=== PATIENT | male | born 1985 | race Caucasian/White ===

== ENCOUNTER 2017-05-22 07:28 | Inpatient (IN) | payer OTHER ==
--- NOTE | 2017-05-22 07:47 | PDOC ---
History of Present Illness - General Chief Complaint: Pain Stated Complaint: SEVERE KIDNEY PAIN Time Seen by Provider: 05/22/17 07:47 - History of Present Illness Initial Comments: 31 year old male with PMH of occasional cocaine use presenting with anxiety and flank pain after cocaine usage. He said that he did 2 G of cocaine last night and drank some alcohol as well. He was here approximately one year prior after using cocaine and was admitted for rhabdomylosis and was hydrated. He states that he did the cocaine last night but started to feel the abdominal/ flank pain this morning and also noticed that he was having decreased urine as well. Denies chest pain, dysuria, change in the color of his urine, SOB, or other symptoms. Overall, he is very anxious and worried about his muscle tone because of the rhabdo. 05/22/17 09:58 Past History - Past Medical History Allergies/Adverse Reactions: Allergies Allergy/AdvReac Type Severity Reaction Status Date / Time No Known Allergies Allergy Verified 01/27/13 14:45 Home Medications: Ambulatory Orders NK [No Known Home Medication] 01/18/16 Asthma: No Cardiac Disorders: Yes (rab) COPD: No Diabetes: No GI Disorders: No Disorders: No HTN: No Kidney Stones: No Seizures: No - Surgical History Abdominal Surgery: No Appendectomy: No Cardiac Surgery: No Cholecystectomy: No Lung Surgery: No Neurologic Surgery: No Orthopedic Surgery: No - Reproductive History Testicular Surgery: No - Suicide/Smoking/Psychosocial Hx Smoking Status: Yes Smoking History: Former smoker Have you smoked in the past 12 months: Yes Number of Cigarettes Smoked Daily: 0 If you are a former smoker, when did you quit?: 3 YEARS Information on smoking cessation initiated: No 'Breaking Loose' booklet given: 01/27/13 Hx Alcohol Use: No (stopped 3yrs ago) Drug/Substance Use Hx: Yes (05/21/17) Substance Use Type: Alcohol, Cocaine Hx Substance Use Treatment: No Review of Systems - Review of Systems Constitutional: No: Chills, Diaphoresis, Fever, Loss of Appetite HEENTM: No: Eye Pain, Blurred Vision, Recent change in vision Respiratory: No: Cough, Shortness of Breath, SOB with Exertion Cardiac (ROS): No: Chest Pain, Palpitations, Syncope, Chest Tightness ABD/GI: No: Constipated, Diarrhea, Nausea, Vomiting : Yes: Flank Pain. No: Burning, Dysuria, Frequency, Hematuria Integumentary: No: Bruising, Dryness, Erythema *Physical Exam - Vital Signs Last Vital Signs Temp Pulse Resp BP Pulse Ox 98.3 F 110 H 22 126/78 96 05/22/17 07:42 05/22/17 07:42 05/22/17 07:42 05/22/17 07:42 05/22/17 07:42 - Physical Exam General Appearance: Yes: Appropriately Dressed, Apparent Distress, Mild Distress , Intoxicated HEENT: positive: EOMI, ALISSON, Normal Voice Neck: positive: Trachea midline, Normal Thyroid, Supple. negative: Tender, Rigid Respiratory/Chest: positive: Lungs Clear, Normal Breath Sounds. negative: Chest Tender, Respiratory Distress, Accessory Muscle Use Cardiovascular: positive: Regular Rhythm, Regular Rate, S1, S2. negative: Edema , Murmur, Tachycardia Gastrointestinal/Abdominal: positive: Normal Bowel Sounds, Flat, Soft. negative : Tender Musculoskeletal: positive: CVA Tenderness, Other (No TTP but some CVA tenderness ). negative: Normal Inspection Integumentary: positive: Normal Color, Dry, Warm Neurologic: positive: Fully Oriented, Alert, Normal Response, Motor Strength 5/ 5. negative: Normal Mood/Affect (Anxious and perseverates on his muscle tone in the setting of rhabdo.) ED Treatment Course - LABORATORY CBC & Chemistry Diagram: 05/22/17 08:30 05/22/17 08:30 Medical Decision Making - Medical Decision Making 31 year old male with anxiety and abdominal/ flank pain after cocaine usage. He is young and healthy without previous comorbities or acutal trauma so he is lower risk for emergent pathology such as dissection or intrabdominal bleed. His VS are stable so that also corrroboarates lack of large vascualr pathology. His EKg is also normal which rules out cocane chest pain, particularly because he is also not comlaining of chest pain. Higher ont he differnetla is renal stone vs. renal infarct. He was given 1 Mg of Ativan for his anxiety prior to CT. 05/22/17 10:11 CT abdomen/ pelvis not showing stone or infarct. However, Ck 6k and blood in urine so will admit for fluid hydration and monitoring of CK. Called Dr. Watson and got to the answering service who told us Dr. Gómez was television and radio repairer. We allotted Dr. Gómez 30 minutes to call back then message the hospitalist team for obs admission. 05/22/17 11:23 Patient will be admitted by the [facility] under Dr. Rasmussen. *DC/Admit/Observation/Transfer Diagnosis at time of Disposition: Cocaine intoxication Rhabdomyolysis Qualifiers: Rhabdomyolysis type: non-traumatic Qualified Code(s): M62.82 - Rhabdomyolysis - Discharge Dispostion Condition at time of disposition: Improved Admit: Yes - Referrals Referrals: Lm Watson [Primary Care Provider] -
--- NOTE | 2017-05-22 07:53 | PDOC ---
Attending Attestation - HPI HPI: 05/22/17 09:06 Patient is a 31 year old male with no significant past medical history of who presents to the ED with complaints lower back pain that began this morning. Patient reports waking up this morning with intense lower back pain this morning. He reports using 2 grams of cocaine last night with alcohol consumption. Patient states he has experiencing this before 2 years ago and states he was given fluids. He reports dysuria this morning at 6 am and again within the ED. Patient states groin pain secondary to lower back pain. Denies chest pain, SOb. Denies fevers, chills. Denies nausea, vomiting. Denies any other symptoms. Allergies: None Social history: Former drinker (3 years, relapse last night). Current cocaine user. No tobacco smoking. Surgical history: None PMD: Dr. Watson - Physicial Exam PE: 05/22/17 09:06 GENERAL: +Anxious Awake, alert, and fully oriented, in no acute distress HEAD: No signs of trauma EYES: PERRLA, EOMI, sclera anicteric, conjunctiva clear ENT: Auricles normal inspection, hearing grossly normal, nares patent, oropharynx clear without exudates. Moist mucosa NECK: Normal ROM, supple, no lymphadenopathy, JVD, or masses LUNGS: Breath sounds equal, clear to auscultation bilaterally. No wheezes, and no crackles HEART: +tachycardic. Regular rhythm, normal S1 and S2, no murmurs, rubs or gallops MUSCULOSKELETAL: +MIld bilateral CVA tenderness. ABDOMEN: +Slight superpubic tenderness. No SI. NO HI Soft, nontender, normoactive bowel sounds. No guarding, no rebound. No masses EXTREMITIES: Normal range of motion, no edema. No clubbing or cyanosis. No cords, erythema, or tenderness NEUROLOGICAL: Cranial nerves II through XII grossly intact. Normal speech, normal gait SKIN: Warm, Dry, normal turgor, no rashes or lesions noted. <Yovany Hou - Last Filed: 05/22/17 09:06> - Resident Resident Name: Devante Chavez - ED Attending Attestation I have performed the following: I have examined & evaluated the patient, The case was reviewed & discussed with the resident, I agree w/resident's findings & plan, Exceptions are as noted - Medical Decision Making 05/22/17 07:53 I, Dr. Ying Jaime, DO, attest that this document has been prepared under my direction and personally reviewed by me in its entirety. I further attest, that it accurately reflects all work, treatment, procedures and medical decision -making performed by me. 05/22/17 08:59 a/p: 31yo male with b/l flank pain after using cocaine and etoh last night -concern for poss renal infarct vs renal colic vs pancreatitis -labs -ekg -ct abd/pelvis -ua -hx of rhabdo with cocaine use - will check cpk -ativan for anxiety/pain -reassess 05/22/17 10:14 pt with rhabdo on labs -will continue ivf hydration -will keep in obs to trend ck 05/22/17 10:15 call placed to PMD. awaiting call back <Ying Jaime - Last Filed: 05/22/17 11:46> Heart Score/ECG Review - ECG Intrepretation Comment:: 05/22/17 09:01 sinus at 98, nl axis, nl interval, lvh, no acute st/t wave findings <Ying Jaime - Last Filed: 05/22/17 11:46>
[2017-05-22] MEDS ORDERED: SODIUM CHLORIDE 0.9% 1000 ML INFUS.BAG IV ONE ×2 (08:05→09:56)
[2017-05-22 08:48] LABS: BASOPHIL 0.6 % (0-2.0); MCH 29.5 pg (25.7-33.7); MCHC 33.8 g/dl (32.0-35.9); MEAN CELL VOLUME 87.3 fl (80-96); MEAN PLT VOLUME 7.5 fl (7.5-11.1); NEUTROPHILS 81.8 % (42.8-82.8); PLATELET COUNT 253 K/MM3 (134-434); RDW 13.3 % (11.9-15.9); WHITE BLOOD COUNT 17.4 K/mm3 (4.0-10.0)
[2017-05-22 09:13] LABS: ALBUMIN 4.3 g/dl (3.4-5.0); ANION GAP 12 (8-16); BILIRUBIN,TOTAL 0.4 mg/dL (0.2-1.0); CALCIUM 8.9 mg/dL (8.5-10.1); CO2 24 mmol/L (21-32); CREATININE 0.9 mg/dL (0.7-1.3); GLUCOSE,RANDOM 92 mg/dL (74-106); SGOT/AST 111 U/L (15-37); SGPT/ALT 49 U/L (12-78)
[2017-05-22 09:19] LABS: URINE APPEARANCE CLEAR; URINE BILIRUBIN NEGATIVE (NEGATIVE); URINE BLOOD 3+ (NEGATIVE); URINE COLOR LTYELLOW; URINE GLUCOSE (UA) NEGATIVE (NEGATIVE); URINE KETONE 1+ (NEGATIVE); URINE LEUK ESTERASE NEGATIVE (NEGATIVE); URINE NITRITE NEGATIVE (NEGATIVE); URINE UROBILINOGEN NEGATIVE mg/dL (0.2-1.0)
[2017-05-22 09:20] LABS: URINE PROTEIN 1+ (NEGATIVE)
[2017-05-22 09:22] LABS: URINE RBC 2 /hpf (0-3); URINE WBC 1 /hpf (3-5)
[2017-05-22 09:27] LABS: ALK PHOS 62 U/L (45-117)
[2017-05-22 09:40] LABS: CPK 5820 IU/L (39-308)
[2017-05-22] MEDS ORDERED: SODIUM CHLORIDE 1,000 ML IV SCH (11:15)
--- NOTE | 2017-05-22 11:18 | HP ---
CHIEF COMPLAINT: Bilateral flank pain, muscle aches PCP: HISTORY OF PRESENT ILLNESS: 31 year-old male with a PMH significant for polysubstance abuse (cocaine, ETOH, prescription drugs). 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 Did a strenuous weight-lifting workout yesterday and then did cocaine and alcohol last night. Woke up this morning with bilateral flank pain, leg cramps, muscle aches, and difficulty passing urine. He recognized these symptoms from previous similar episodes and came to the ED. ER course was notable for: (1) WBC 17.4 (2) CPK 5820 (3) Utox + cocaine (4) UA - 3+ blood, 2 RBCs Recent Travel: No PAST MEDICAL HISTORY: Polysubstance abuse PAST SURGICAL HISTORY: None reported Social History: Smoking: yes Alcohol: yes Drugs: yes Family History: non-contributory Allergies No Known Allergies Allergy (Verified 01/27/13 14:45) HOME MEDICATIONS: Home Medications Medication Instructions Recorded NK [No Known Home Medication] 01/18/16 REVIEW OF SYSTEMS CONSTITUTIONAL: Absent: fever, chills, diaphoresis, generalized weakness, malaise, loss of appetite, weight change HEENT: Absent: rhinorrhea, nasal congestion, throat pain, throat swelling, difficulty swallowing, mouth swelling, ear pain, eye pain, visual changes CARDIOVASCULAR: Absent: chest pain, syncope, palpitations, irregular heart rate, lightheadedness , peripheral edema RESPIRATORY: Absent: cough, shortness of breath, dyspnea with exertion, orthopnea, wheezing, stridor, hemoptysis GASTROINTESTINAL: Absent: abdominal pain, abdominal distension, nausea, vomiting, diarrhea, constipation, melena, hematochezia GENITOURINARY: Present: bilateral flank pain, difficulty passing urine Absent: dysuria, frequency, urgency, hesitancy, hematuria, genital pain MUSCULOSKELETAL: Absent: myalgia, arthralgia, joint swelling, back pain, neck pain SKIN: Absent: rash, itching, pallor HEMATOLOGIC/IMMUNOLOGIC: Absent: easy bleeding, easy bruising, lymphadenopathy, frequent infections ENDOCRINE: Absent: unexplained weight gain, unexplained weight loss, heat intolerance, cold intolerance NEUROLOGIC: Absent: headache, focal weakness or paresthesias, dizziness, unsteady gait, seizure, mental status changes, bladder or bowel incontinence PSYCHIATRIC: Absent: anxiety, depression, suicidal or homicidal ideation, hallucinations. PHYSICAL EXAMINATION Vital Signs - 24 hr 05/22/17 07:42 Temperature 98.3 F Pulse Rate 110 H Respiratory 22 Rate Blood Pressure 126/78 O2 Sat by Pulse 96 Oximetry (%) GENERAL/NEURO: Awake, alert, and fully oriented, in no acute distress; CN II- XII grossly intact. Irritable, anxious. Mild hand tremors. HEAD: Normal with no signs of trauma. EYES: Pupils equal, round and reactive to light, extraocular movements intact, sclera anicteric, conjunctiva clear. No ptosis. EARS, NOSE, THROAT: Ears normal, nares patent, oropharynx clear without exudates. Moist mucous membranes. NECK: Normal range of motion, supple without lymphadenopathy, JVD, or masses. LUNGS: Breath sounds equal, clear to auscultation bilaterally. No wheezes, and no crackles. No accessory muscle use. HEART: Regular rate and rhythm, normal S1 and S2 without murmur, rub or gallop. ABDOMEN: Soft, nontender, not distended, normoactive bowel sounds, no guarding, no rebound, no masses. No hepatomegaly or splenomegaly. MUSCULOSKELETAL: Normal range of motion at all joints. No bony deformities or tenderness. No CVA tenderness. UPPER EXTREMITIES: 2+ pulses, warm, well-perfused. No cyanosis. No clubbing. No peripheral edema. LOWER EXTREMITIES: 2+ pulses, warm, well-perfused. No calf tenderness. No peripheral edema. NEUROLOGICAL: Cranial nerves II-XII intact. Normal speech. Normal gait. Laboratory Results - last 24 hr 05/22/17 05/22/17 05/22/17 08:30 08:30 08:59 WBC 17.4 H D RBC 4.91 Hgb 14.5 Hct 42.9 MCV 87.3 MCH 29.5 MCHC 33.8 RDW 13.3 Plt Count 253 D MPV 7.5 Neutrophils % 81.8 D Lymphocytes % 10.0 D Monocytes % 7.6 Eosinophils % 0.0 D Basophils % 0.6 Sodium 136 Potassium 4.3 Chloride 100 Carbon Dioxide 24 Anion Gap 12 BUN 21 H D Creatinine 0.9 D Creat Clearance w eGFR > 60 Random Glucose 92 Calcium 8.9 Total Bilirubin 0.4 D AST 111 H D ALT 49 Alkaline Phosphatase 62 Creatine Kinase 5820 H Creatine Kinase Index 0.2 CK-MB (CK-2) 15.578 H Total Protein 7.0 Albumin 4.3 Lipase 136 Urine Color Ltyellow Urine Appearance Clear Urine pH 6.0 Urine Protein 1+ H Urine Glucose (UA) Negative Urine Ketones 1+ H Urine Blood 3+ H Urine Nitrite Negative Urine Bilirubin Negative Urine Urobilinogen Negative Urine RBC 2 Urine WBC 1 ASSESSMENT/PLAN: 31 year-old male with a PMH significant for polysubstance abuse (cocaine, ETOH, prescription drugs). Placed on observation for rhabdomyolysis. Rhabdomyolysis --CPK 5820 --05/22 CTAP: no evidence of urolithiasis or obstructive uropathy; no gross evidence of renal infarction on non-contrast study --05/22 US renal: kidneys unremarkable --received 2L in ED, continue IV fluids @ 150mL/hr --repeat CPK in 8 hours --strict I&Os --renal consult Dr. Chan pending --close monitoring of renal function Polysubstance abuse --early signs of withdrawal: irritable, anxious, mild hand tremors --discussed librium protocol with patient; he states he was sober for three years after going through detox; fell off the wagon of late, binge drinks; he does not think he needs the full librium protocol since he does not drink regularly; will give librium 25mg x 1 now, and continue to monitor closely DVT prophylaxis: lovenox, oob, ambulation Dispo: continues to require observation. Visit type - Emergency Visit Emergency Visit: Yes ED Registration Date: 05/22/17 Care time: The patient presented to the Emergency Department on the above date and was hospitalized for further evaluation of their emergent condition. - New Patient This patient is new to me today: Yes Date on this admission: 05/22/17 - Critical Care Critical Care patient: No
[2017-05-22 11:57] VITALS: BMI 24.4
[2017-05-22] MEDS: SODIUM CHLORIDE 1,000 ML IV SCH (12:25)
[2017-05-22 12:27] LABS: URINE MARIJUANA THC NEGATIVE ng/ml (CUTOFF=50)
[2017-05-22] MEDS ORDERED: chlordiazePOXIDE HCL 25 MG CAPSULE PO ONE (15:31)
[2017-05-22] MEDS ORDERED: ASPIRIN 325 MG ENTERIC COATED TABLET (FP) PO ONE (16:59)
[2017-05-22] MEDS ORDERED: SODIUM CHLORIDE 1,000 ML IV STA (17:01)
[2017-05-22] MEDS ORDERED: chlordiazePOXIDE HCL 25 MG CAPSULE PO PRN (17:21)
--- NOTE | 2017-05-22 17:33 | HOSP ---
Subjective - Review of Symptoms Events since last encounter: Repeat CPK increased to >11,000. Has put out 1.7L urine over past [address] Guadarrama, will continue NS @ 150mL/hr. First troponin elevated 0.13. BP 100/70, HR 70. Spoke with bottling line operator Dr. Mcelroy. Continue to treat with IV fluids, no other intervention for now since HR and BP are controlled. Two troponins pending. Physical Examination Vital Signs: Vital Signs Temperature 98.3 F 05/22/17 07:42 Pulse Rate 71 05/22/17 11:42 Respiratory Rate 18 05/22/17 11:42 Blood Pressure 100/51 05/22/17 11:42 O2 Sat by Pulse Oximetry (%) 97 05/22/17 11:42
[2017-05-22] MEDS: chlordiazePOXIDE HCL 25 MG CAPSULE PO ONE ×2 (17:35→17:50)
[2017-05-22] MEDS ORDERED: LORazepam 2 MG/ML SDV VIAL IVPUSH ONE (18:30)
[2017-05-22] MEDS: chlordiazePOXIDE HCL 25 MG CAPSULE PO SCH (23:00)
[2017-05-23] MEDS: chlordiazePOXIDE HCL 25 MG CAPSULE PO SCH ×4 (05:47→22:13)
[2017-05-23 06:49] LABS: BASOPHIL 0.3 % (0-2.0); EOSINOPHIL 0.6 % (0-4.5); MCH 29.9 pg (25.7-33.7); MCHC 33.8 g/dl (32.0-35.9); MEAN CELL VOLUME 88.5 fl (80-96); MEAN PLT VOLUME 7.5 fl (7.5-11.1); NEUTROPHILS 58.5 % (42.8-82.8); PLATELET COUNT 196 K/MM3 (134-434); RDW 13.6 % (11.9-15.9); WHITE BLOOD COUNT 6.9 K/mm3 (4.0-10.0)
[2017-05-23 07:03] LABS: ALBUMIN 3.6 g/dl (3.4-5.0); ALK PHOS 50 U/L (45-117); ANION GAP 8 (8-16); BILIRUBIN,TOTAL 0.7 mg/dL (0.2-1.0); CALCIUM 8.4 mg/dL (8.5-10.1); CO2 27 mmol/L (21-32); CREATININE 0.7 mg/dL (0.7-1.3); GLUCOSE,RANDOM 94 mg/dL (74-106); MAGNESIUM 2.1 mg/dL (1.8-2.4); PHOSPHOROUS 2.2 mg/dL (2.5-4.9); SGOT/AST 209 U/L (15-37); SGPT/ALT 76 U/L (12-78); TOT PROT 5.8 g/dl (6.4-8.2)
[2017-05-23] MEDS: HEPARIN NA (PORCINE) 5,000 UNITS/ML 1ML VIAL SQ SCH ×3 (08:35→22:14)
[2017-05-23 09:58] LABS: URINE APPEARANCE CLEAR; URINE BILIRUBIN NEGATIVE (NEGATIVE); URINE BLOOD 1+ (NEGATIVE); URINE COLOR STRAW; URINE GLUCOSE (UA) NEGATIVE (NEGATIVE); URINE KETONE NEGATIVE (NEGATIVE); URINE LEUK ESTERASE NEGATIVE (NEGATIVE); URINE NITRITE NEGATIVE (NEGATIVE); URINE PROTEIN NEGATIVE (NEGATIVE); URINE UROBILINOGEN NEGATIVE mg/dL (0.2-1.0)
[2017-05-23] MEDS ORDERED: ENOXAPARIN NA (PORCINE) 40 MG/0.4 ML DISP.SYRIN SQ SCH (10:00)
[2017-05-23 10:08] LABS: URINE RBC 1 /hpf (0-3)
--- NOTE | 2017-05-23 10:40 | CON.NEP ---
Consult Consult Specialty:: Nephrolgoy Referred by:: RAMIRO Castano Reason for Consultation:: Rhabodomyolysis - History of Present Illness Chief Complaint: Flank pain, muscle pain History of Present Illness: This is a 31 year old gentleman with no significant PMhx who presented with complaints of flank pain and muscle pain after cocaine and etoh use and found to have rhabdomyolysis with CK peak > 96385. Pt with cocaine and ETOH use 2 days prior to admission and also with weight lifting. Denies any dark urine or blood in urine. No N/V/D. No flank pain at present time. - History Source History Provided By: Patient Limitations to Obtaining History: No Limitations - Alcohol/Substance Use Hx Alcohol Use: No (stopped 3yrs ago) - Smoking History Smoking history: Former smoker Have you smoked in the past 12 months: Yes Aproximately how many cigarettes per day: 0 If you are a former smoker, when did you quit?: 3 YEARS Home Medications - Allergies Allergies/Adverse Reactions: Allergies Allergy/AdvReac Type Severity Reaction Status Date / Time No Known Allergies Allergy Verified 01/27/13 14:45 - Home Medications Home Medications: Ambulatory Orders NK [No Known Home Medication] 01/18/16 Family Disease History - Family Disease History Family History: Unremarkable Review of Systems - Review of Systems Constitutional: reports: No Symptoms Eyes: reports: No Symptoms HENT: reports: No Symptoms Neck: reports: No Symptoms Cardiovascular: reports: No Symptoms Respiratory: reports: No Symptoms Gastrointestinal: reports: No Symptoms Genitourinary: reports: No Symptoms Breasts: reports: No Symptoms Reported Musculoskeletal: reports: Extremity Pain, Muscle Pain, Muscle Weakness Neurological: reports: No Symptoms Nephrology Consult - Height Height: 5 ft 11 in - Weight Weight: 175 lb - BMI Body Mass Index (BMI): 24.4 - Lab Results CBC,BMP: CBC, BMP 05/23/17 06:20 05/23/17 06:20 Anion Gap: Anion Gap Anion Gap 8 (8-16) 05/23/17 06:20 - Physical Examination Vital Signs: Vital Signs Temperature 98.6 F 05/23/17 10:00 Pulse Rate 68 05/23/17 10:00 Respiratory Rate 16 05/23/17 10:00 Blood Pressure 121/63 05/23/17 10:00 O2 Sat by Pulse Oximetry (%) 97 10/01/17 19:22 Constitutional: Yes: Well Nourished, No Distress Eyes: Yes: Conjunctiva Clear HENT: Yes: Atraumatic, Normocephalic Neck: Yes: Supple Cardiovascular: Yes: Regular Rate and Rhythm, S1, S2. No: Murmur, Rub Respiratory: Yes: Regular, CTA Bilaterally Gastrointestinal: Yes: Normal Bowel Sounds, Soft Extremities: No: Amputation, Cold, Cool, Cyanosis Edema: Yes Neurological: Yes: Alert, Oriented Psychiatric: Yes: Alert, Oriented Problem List - Problems (1) Cocaine intoxication Code(s): F14.929 - COCAINE USE, UNSPECIFIED WITH INTOXICATION, UNSPECIFIED (2) Rhabdomyolysis Code(s): M62.82 - RHABDOMYOLYSIS Qualifiers: Rhabdomyolysis type: non-traumatic Qualified Code(s): M62.82 - Rhabdomyolysis; M62.82 - Rhabdomyolysis (3) Alcohol abuse Code(s): F10.10 - ALCOHOL ABUSE, UNCOMPLICATED Assessment/Plan 31 year old gentleman with no significant PMhx who presented with complaints of flank pain and muscle pain after cocaine and etoh use and found to have rhabdomyolysis with CK peak > 04343. #Acute Rhabodomyolysis Likely secondary to ETOH/Cocaine intoxication +/- physical exertion CK levels now downtrending Renal function stable, and no structural issues with the kidney at this time based on CT and US imaging Trend CK level Q12h continue IVF until CKs less then 5000 at which point pt can orally hydrate Trend BUN/Cr daily no indication for bicarb at this time (Marginal Ca, Bicarb >> 25) #Hypophosphatemia due to poor oral intake insetting of intoxication? give neutraphos PO x 3 Check vit D levels #Elevated Troponin related to Cocaine? Cardiology follow up Thank you Will follow Dustin Guadarrama DO
[2017-05-23] MEDS: NAPH,MB-DB/K PH,MBDB POWDER PACKET PO SCH ×3 (11:28→22:14)
[2017-05-23] MEDS: SODIUM CHLORIDE 1,000 ML IV SCH (11:29)
--- NOTE | 2017-05-23 11:56 | EKG ---
Test Reason : Blood Pressure : / mmHG Vent. Rate : 098 BPM Atrial Rate : 098 BPM P-R Int : 150 ms QRS Dur : 092 ms QT Int : 352 ms P-R-T Axes : 051 081 056 degrees QTc Int : 449 ms NORMAL SINUS RHYTHM NORMAL ECG WHEN COMPARED WITH ECG OF 18-JAN-2016 13:22, NO SIGNIFICANT CHANGE WAS FOUND Confirmed by RNE MOREIRA MD ([id number]) on 05/23/2017 11:55:58 AM Referred By: Confirmed By:REN MOREIRA MD
--- NOTE | 2017-05-23 13:21 | PN ---
Physical Exam: SUBJECTIVE: Patient seen and examined. He feels fine, hungry. He denies le weakness/pain, does not want rehab. Urine is clear, anxiety improved. He said this is an isolated event, he stopped drinking 4 years ago, however was admitted for the same in december 2016. He is concerned he will loose muscle mass. Events: - CPK down trended OBJECTIVE: Vital Signs Period Temp Pulse Resp BP Sys/Patrick Pulse Ox Last 24 Hr 98 F-98.6 F 65-68 16-20 107-121/51-63 97 PE Neuro: alert, awake, cn 2-12intact HEENT: no tongue fasiculation Pulm: CTAB CV: s1 s2 rrr no mrg Abd: s nt nd + bs Ext: warm, no le edema or tenderness Laboratory Results - last 24 hr 05/22/17 05/22/17 05/22/17 15:20 15:40 21:10 WBC RBC Hgb Hct MCV MCH MCHC RDW Plt Count MPV Neutrophils % Lymphocytes % Monocytes % Eosinophils % Basophils % Sodium Potassium Chloride Carbon Dioxide Anion Gap BUN Creatinine Creat Clearance w eGFR Random Glucose Calcium Phosphorus Magnesium Total Bilirubin AST ALT Alkaline Phosphatase Creatine Kinase 30529 H Creatine Kinase Index 0.2 CK-MB (CK-2) 23.930 H Troponin I 0.13 H D 0.08 H D Total Protein Albumin Urine Color Urine Appearance Urine pH Urine Protein Urine Glucose (UA) Urine Ketones Urine Blood Urine Nitrite Urine Bilirubin Urine Urobilinogen Urine RBC Urine WBC 05/23/17 05/23/17 05/23/17 03:30 06:20 06:20 WBC 6.9 D RBC 4.79 Hgb 14.3 Hct 42.4 MCV 88.5 MCH 29.9 MCHC 33.8 RDW 13.6 Plt Count 196 D MPV 7.5 Neutrophils % 58.5 D Lymphocytes % 31.5 D Monocytes % 9.1 Eosinophils % 0.6 D Basophils % 0.3 Sodium 142 Potassium 4.0 Chloride 107 Carbon Dioxide 27 Anion Gap 8 BUN 10 D Creatinine 0.7 D Creat Clearance w eGFR > 60 Random Glucose 94 Calcium 8.4 L Phosphorus 2.2 L Magnesium 2.1 Total Bilirubin 0.7 D AST 209 H D ALT 76 D Alkaline Phosphatase 50 Creatine Kinase Creatine Kinase Index CK-MB (CK-2) Troponin I 0.05 D Total Protein 5.8 L Albumin 3.6 Urine Color Urine Appearance Urine pH Urine Protein Urine Glucose (UA) Urine Ketones Urine Blood Urine Nitrite Urine Bilirubin Urine Urobilinogen Urine RBC Urine WBC 05/23/17 05/23/17 06:20 09:22 WBC RBC Hgb Hct MCV MCH MCHC RDW Plt Count MPV Neutrophils % Lymphocytes % Monocytes % Eosinophils % Basophils % Sodium Potassium Chloride Carbon Dioxide Anion Gap BUN Creatinine Creat Clearance w eGFR Random Glucose Calcium Phosphorus Magnesium Total Bilirubin AST ALT Alkaline Phosphatase Creatine Kinase 7917 H Creatine Kinase Index 0.1 CK-MB (CK-2) 14.593 H Troponin I Total Protein Albumin Urine Color Straw Urine Appearance Clear Urine pH 7.0 Urine Protein Negative Urine Glucose (UA) Negative Urine Ketones Negative Urine Blood 1+ H Urine Nitrite Negative Urine Bilirubin Negative Urine Urobilinogen Negative Urine RBC 1 Urine WBC None Active Medications Generic Name Dose Route Start Last Admin Trade Name Freq PRN Reason Stop Dose Admin Chlordiazepoxide HCl 25 mg 05/22/17 17:21 Librium - PO 05/25/17 17:20 Q4H PRN WITHDRAWAL(CONT SUBST) Chlordiazepoxide HCl 50 mg 05/22/17 23:00 05/23/17 11:28 Librium - PO 05/23/17 17:01 50 mg [id number] HUGO Administration Chlordiazepoxide HCl 25 mg 05/23/17 23:00 Librium - PO 05/24/17 17:01 [id number] HUGO Chlordiazepoxide HCl 15 mg 05/24/17 23:00 Librium - PO 05/25/17 17:01 [id number] HUGO Heparin Sodium (Porcine) 5,000 unit 05/23/17 07:45 05/23/17 08:35 Heparin - SQ 5,000 unit TID HUGO Administration Sodium Chloride 1,000 mls @ 150 mls/hr 05/22/17 11:45 05/23/17 11:29 Normal Saline - IV 150 mls/hr ASDIR HUGO Administration Potassium Phos/Sodium Phos 1 packet 05/23/17 10:45 05/23/17 11:28 Phos-Nak Packet - PO 05/23/17 22:01 1 packet TID HUGO Administration Assessment: 30 year old male with PMHx of alcohol abuse admitted with bilateral flank pain, leg cramps, muscle aches, and difficulty passing urine. Plan 1. Rhabdomyolysis - 2/2 mixed cocaine use and vigorous exercise - CK trending down, check q12 - Continue fluids 150cc/hr, once cpk <5000 can hydrate orally 2. Chest pain - Likely d/t cocaine use - Serial trops negative 3. Leukocytosis - Resolved - Likely reactive 4. Hypophosphatemia - Replete with k phos pkts 5. Alcohol abuse - Patient reports being sober for 4 years this drinking is an isolated event - Dose not want to go to rehab, reports having a counselor Cocaine use - Reports this was an isolated event as well Dispo: - Once condition improves Visit type - Emergency Visit Emergency Visit: Yes ED Registration Date: 05/22/17 Care time: The patient presented to the Emergency Department on the above date and was hospitalized for further evaluation of their emergent condition. - New Patient This patient is new to me today: Yes Date on this admission: 05/23/17 - Critical Care Critical Care patient: No
--- NOTE | 2017-05-23 16:40 | CON.CARD ---
Consult Consult Specialty:: Cardiology Reason for Consultation:: Chest pain - History of Present Illness Chief Complaint: Chest pain History of Present Illness: This is a 31 year old male with a PMH of polysubstance abuse (cocaine, ETOH, prescription drugs). He states that he did a strenuous weight-lifting workout and then did cocaine with alcohol. He woke up with bilateral flank pain, leg cramps, muscle aches, and difficulty passing urine. He recognized these symptoms from previous similar episodes and came to the ED. ER course was notable for: (1) WBC 17.4 (2) CPK 5820 (3) Utox + cocaine (4) UA - 3+ blood, 2 RBCs Troponin I noted to be positive 0.13 - Alcohol/Substance Use Hx Alcohol Use: No (stopped 3yrs ago) - Smoking History Smoking history: Former smoker Have you smoked in the past 12 months: Yes Aproximately how many cigarettes per day: 0 If you are a former smoker, when did you quit?: 3 YEARS Home Medications - Allergies Allergies/Adverse Reactions: Allergies Allergy/AdvReac Type Severity Reaction Status Date / Time No Known Allergies Allergy Verified 01/27/13 14:45 - Home Medications Home Medications: Ambulatory Orders NK [No Known Home Medication] 01/18/16 Review of Systems Unable to obtain ROS, reason: As per HPI Vital Signs: Vital Signs Temperature 98.4 F 05/23/17 13:51 Pulse Rate 79 05/23/17 13:51 Respiratory Rate 20 05/23/17 13:51 Blood Pressure 125/75 05/23/17 13:51 O2 Sat by Pulse Oximetry (%) 99 05/23/17 11:00 Constitutional: Yes: Well Nourished HENT: Yes: WNL Neck: Yes: WNL Respiratory: Yes: CTA Bilaterally Gastrointestinal: Yes: Soft Cardiovascular: Yes: Regular Rate and Rhythm (NL S1S2, No MRHG) JVD: No PMI: Non-Displaced (RRR, NL S1S2, No MRHG) Extremities: Yes: WNL Edema: No - Other Data Labs, Other Data: CBC, BMP 05/23/17 06:20 05/23/17 06:20 Troponin, BNP 05/22/17 05/22/17 05/23/17 15:40 21:10 03:30 Troponin I 0.13 H D 0.08 H D 0.05 D Troponin, BNP 05/22/17 05/22/17 05/23/17 15:40 21:10 03:30 Troponin I 0.13 H D 0.08 H D 0.05 D Assessment/Plan Rhabdomyolysis Likely secondary to exercise cocaine after vigorous exercise CPK trending down with fluids Chest pain Postitive troponin level secondary to demand ischemia secondary to cocaine use ( type 2 IA) Avoid Beta Blockers in the setting of cocaine Follow troponin trends Agree with ASA Obtain echocardiogram
[2017-05-23] MEDS: ASPIRIN COATED 81 MG TABLET.EC PO SCH (22:13)
[2017-05-24] MEDS: HEPARIN NA (PORCINE) 5,000 UNITS/ML 1ML VIAL SQ SCH ×3 (05:09→22:46)
[2017-05-24] MEDS: chlordiazePOXIDE HCL 25 MG CAPSULE PO SCH ×3 (05:09→17:12)
[2017-05-24 06:51] LABS: ANION GAP 5 (8-16); CALCIUM 8.5 mg/dL (8.5-10.1); CO2 30 mmol/L (21-32); CREATININE 0.7 mg/dL (0.7-1.3); GLUCOSE,RANDOM 95 mg/dL (74-106); PHOSPHOROUS 3.1 mg/dL (2.5-4.9)
[2017-05-24 07:17] LABS: CPK 3894 IU/L (39-308)
[2017-05-24] MEDS: ASPIRIN COATED 81 MG TABLET.EC PO SCH (09:23)
--- NOTE | 2017-05-24 12:04 | PN ---
Progress Note (short form) - Note Progress Note: Renal Follow up for Rhabomyolysis Pt seen and examined at the bedside awake and alert no acute complaints no muscle pain, sob, chest pain making clear urine Vital Signs Temperature 97.8 F 05/24/17 09:00 Pulse Rate 47 L 05/24/17 09:00 Respiratory Rate 18 05/24/17 11:00 Blood Pressure 108/63 05/24/17 09:00 O2 Sat by Pulse Oximetry (%) 99 05/24/17 11:00 Intake & Output 05/21/17 05/22/17 05/23/17 05/24/17 23:59 23:59 23:59 23:59 Intake Total 2900 5200 300 Output Total 3900 36600 3100 Balance -1000 -6350 -2800 Weight 175 lb 175 lb NAD, awake and alert RRR CTA soft NT/ND Abd no edema CBC, BMP 05/23/17 06:20 05/24/17 06:00 Laboratory Tests 05/23/17 05/24/17 06:20 06:00 Random Glucose 95 Calcium 8.4 L 8.5 Phosphorus 2.2 L 3.1 D Magnesium 2.1 Creatine Kinase 3894 H CK-MB (CK-2) 5.25 H Albumin 3.6 Current Medications Aspirin (Ecotrin -) 81 mg PO DAILY [facility] Last Admin: 05/24/17 09:23 Dose: 81 mg Chlordiazepoxide HCl (Librium -) 25 mg PO Q4H PRN PRN Reason: WITHDRAWAL(CONT SUBST) Stop: 05/25/17 17:20 Chlordiazepoxide HCl (Librium -) 25 mg PO S2S-WOK [facility] Stop: 05/24/17 17:01 Last Admin: 05/24/17 05:09 Dose: 25 mg Chlordiazepoxide HCl (Librium -) 15 mg PO B2G-FOH [facility] Stop: 05/25/17 17:01 Heparin Sodium (Porcine) (Heparin -) 5,000 unit SQ TID [facility] Last Admin: 05/24/17 05:09 Dose: 5,000 unit Sodium Chloride (Normal Saline -) 1,000 mls @ 150 mls/hr IV ASDIR [facility] Last Admin: 05/23/17 11:29 Dose: 150 mls/hr A/P 31 year old gentleman with no significant PMhx who presented with complaints of flank pain and muscle pain after cocaine and etoh use and found to have rhabdomyolysis with CK peak > 99779. #Acute Rhabodomyolysis Likely secondary to ETOH/Cocaine intoxication +/- physical exertion CK levels now less then 5k can be off IVF, continued oral intake >2L daily for the next few days will need to follow up with PMD for repeat labs in 1 week advised to avoid strenuous exercise for the next week until he follow up with PMD Dustin Guadarrama DO Problem List - Problems (1) Cocaine intoxication Code(s): F14.929 - COCAINE USE, UNSPECIFIED WITH INTOXICATION, UNSPECIFIED (2) Rhabdomyolysis Code(s): M62.82 - RHABDOMYOLYSIS Qualifiers: Rhabdomyolysis type: non-traumatic Qualified Code(s): M62.82 - Rhabdomyolysis; M62.82 - Rhabdomyolysis (3) Alcohol abuse Code(s): F10.10 - ALCOHOL ABUSE, UNCOMPLICATED
[2017-05-24] MEDS: SODIUM CHLORIDE 1,000 ML IV SCH (12:14)
--- NOTE | 2017-05-24 14:31 | DS ---
Physical Exam: SUBJECTIVE: Patient seen and examined OBJECTIVE: Vital Signs Period Temp Pulse Resp BP Sys/Patrick Pulse Ox Last 24 Hr 97.8 F-98.0 F 47-66 18-20 100-108/50-63 99 PHYSICAL EXAM GENERAL: The patient is awake, alert, and fully oriented, in no acute distress. HEAD: Normal with no signs of trauma. EYES: PERRL, extraocular movements intact, sclera anicteric, conjunctiva clear. ENT: Ears normal, nares patent, oropharynx clear without exudates, moist mucous membranes. NECK: Trachea midline, full range of motion, supple. LUNGS: Breath sounds equal, clear to auscultation bilaterally, no wheezes, no crackles, no accessory muscle use. HEART: Regular rate and rhythm, S1, S2 without murmur, rub or gallop. ABDOMEN: Soft, nontender, nondistended, normoactive bowel sounds, no guarding, no rebound, no hepatosplenomegaly, no masses. EXTREMITIES: 2+ pulses, warm, well-perfused, no edema. NEUROLOGICAL: Cranial nerves II through XII grossly intact. Normal speech, gait not observed. PSYCH: Normal mood, normal affect. SKIN: Warm, dry, normal turgor, no rashes or lesions noted. LABS Laboratory Results - last 24 hr 05/23/17 05/24/17 17:15 06:00 Sodium 142 Potassium 4.0 Chloride 107 Carbon Dioxide 30 Anion Gap 5 L BUN 13 D Creatinine 0.7 Random Glucose 95 Calcium 8.5 Phosphorus 3.1 D Creatine Kinase 6289 H 3894 H Creatine Kinase Index 0.1 0.1 CK-MB (CK-2) 8.913 H 5.25 H HOSPITAL COURSE: Date of Admission:05/22/17 Date of Discharge: 05/24/17 Pre hospital course 31 year-old male with a PMH significant for polysubstance abuse (cocaine, ETOH, prescription drugs). 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 Did a strenuous weight-lifting workout yesterday and then did cocaine and alcohol last night. Woke up this morning with bilateral flank pain, leg cramps, muscle aches, and difficulty passing urine. He recognized these symptoms from previous similar episodes when he was diagnosed with rhabdomyolysis, and came to the ED. ER course (1) WBC 17.4 (2) CPK 5820 (3) Utox + cocaine (4) UA - 3+ blood, 2 RBCs Subsequent hospital course by problem list Acute Rhabdomyolysis --likely secondary to ETOH/cocaine intoxication --CPK peaked 11,494, today 3,894 --05/22 CTAP: no evidence of urolithiasis or obstructive uropathy; no gross evidence of renal infarction on non-contrast study --05/22 US renal: kidneys unremarkable --05/24 Echo: --was aggressively hydrated with IV fluids --encouraged PO intake >2L daily Demand ischemia/Type II myocardial infarction secondary to cocaine ingestion --troponins trended down --treated with ASA only; BP and pulse were on low side, no room to give CCB; BB contraindicated Polysubstance abuse --demonstrated early signs of withdrawal: irritability, anxiety, mild hand tremors --was treated with librium taper protocol until today when patient refused all further librium, stating he does not like the way it makes him feel --patient does appear anxious today, demanding to go home Discharge to home. Patient declines offer of rehab, counseling, any type of substance abuse therapy. Minutes to complete discharge: 35 Discharge Summary Reason For Visit: COCAINE INTOX RHABDOMYOLYSIS Current Active Problems Cocaine intoxication (Acute) Rhabdomyolysis (Acute) Condition: Improved - Instructions Diet, Activity, Other Instructions: You should drink more than 2L of fluid every day for the next few days. No alcohol, no caffeine. You should follow up with your primary care provider within one week to have blood work done to assess your renal function. Return to the emergency department for any new or worsening symptoms. Referrals: Lm Watson [Primary Care Provider] - 1 Week Disposition: HOME - Home Medications Comprehensive Discharge Medication List: Ambulatory Orders NK [No Known Home Medication] 01/18/16 This patient is new to me today: No Emergency Visit: Yes ED Registration Date: 05/22/17 Care time: The patient presented to the Emergency Department on the above date and was hospitalized for further evaluation of their emergent condition. Critical Care patient: No
--- NOTE | 2017-05-24 20:13 | PN ---
Progress Note, Physician History of Present Illness: This is a 31 year old male with a PMH of polysubstance abuse (cocaine, ETOH, prescription drugs). He states that he did a strenuous weight-lifting workout and then did cocaine with alcohol. He woke up with bilateral flank pain, leg cramps, muscle aches, and difficulty passing urine. He recognized these symptoms from previous similar episodes and came to the ED. ER course was notable for: (1) WBC 17.4 (2) CPK 5820 (3) Utox + cocaine (4) UA - 3+ blood, 2 RBCs Troponin I noted to be positive 0.13 - Current Medication List Current Medications: Active Medications Aspirin (Ecotrin -) 81 mg PO DAILY [facility] [place] Last Admin: 05/24/17 09:23 Dose: 81 mg Chlordiazepoxide HCl (Librium -) 25 mg PO Q4H PRN PRN Reason: WITHDRAWAL(CONT SUBST) Stop: 05/25/17 17:20 Chlordiazepoxide HCl (Librium -) 15 mg PO [id number] [facility] [place] Stop: 05/25/17 17:01 Heparin Sodium (Porcine) (Heparin -) 5,000 unit SQ TID [facility] [place] Last Admin: 05/24/17 14:12 Dose: 5,000 unit - Objective Vital Signs: Vital Signs Temperature 99.3 F 05/24/17 18:19 Pulse Rate 83 05/24/17 18:19 Respiratory Rate 18 05/24/17 18:19 Blood Pressure 118/65 05/24/17 18:19 O2 Sat by Pulse Oximetry (%) 99 05/24/17 11:00 Constitutional: Yes: Well Nourished HENT: Yes: WNL Neck: Yes: WNL Cardiovascular: Yes: Regular Rate and Rhythm (NL S1S2 no MRHG) Respiratory: Yes: CTA Bilaterally Gastrointestinal: Yes: Soft Extremities: Yes: WNL Edema: No Neurological: Yes: Oriented (Grossly nonfocal) Psychiatric: Yes: WNL Labs: CBC, BMP 05/23/17 06:20 05/24/17 06:00 Assessment/Plan Rhabdomyolysis Likely secondary to exercise cocaine after vigorous exercise CPK trending down with fluids Chest pain Postitive troponin level secondary to demand ischemia secondary to cocaine use ( type 2 CA) Avoid Beta Blockers in the setting of cocaine Follow troponin trends, now negative Agree with ASA Obtain echocardiogram
[2017-05-24] MEDS: chlordiazePOXIDE 5 MG CAPSULE PO SCH (22:46)
[2017-05-25] MEDS: chlordiazePOXIDE 5 MG CAPSULE PO SCH ×2 (06:13→12:23)
[2017-05-25] MEDS: HEPARIN NA (PORCINE) 5,000 UNITS/ML 1ML VIAL SQ SCH ×2 (06:13→14:09)
[2017-05-25] MEDS: ASPIRIN COATED 81 MG TABLET.EC PO SCH (09:36)
[2017-05-25 15:06] VITALS: BP 112/69; PULSE 78; TEMP 97.4
== END 2017-05-25 15:16 | disposition home or self-care (01) | DRG 557 ==
LOC: JER 07:28 → JERBED 11:33 → J4W 14:35 → OBSVTOIN 17:26
PROVIDERS: ADMIT Internal Medicine; ATTEND Nurse Practitioner Acute Care
DX: M62.82 Rhabdomyolysis (principal); I21.A1 Myocardial infarction type 2; T40.5X1A Poisoning by cocaine, accidental (unintentional), initial encounter; Z87.891 Personal history of nicotine dependence; F14.120 Cocaine abuse with intoxication, uncomplicated; E83.39 Other disorders of phosphorus metabolism; F10.120 Alcohol abuse with intoxication, uncomplicated
CPT/HCPCS: 36415; 74176-TC; 76775-TC; 80048; 80053; 80307; 81003; 81015; 82553; 83690; 83735; 84100; 84484; 85025; 87040; 87086; 93005; 93010; 93306-TC; 99282-25; G0378; J1644